=== PATIENT | female | born 1980 | race Caucasian/White ===

== ENCOUNTER 2024-02-23 03:45 | Emergency (ER) | payer OTHER, SELFPAY ==
--- NOTE | 2024-02-23 03:48 | DOWNTIME ---
There was a [employer] Downtime on 01/18/2024 from 0100 to 01/19/2024 at 0338. Downtime documentation of patient's care, including medication administrations, has been reconciled in the electronic record per guidelines. Refer to the
patient's paper chart under the miscellaneous tab to see printed paper medication records and downtime forms.
--- NOTE | 2024-02-23 03:49 | ED.GENMED ---
History of Present Illness
<THEO Johnson - Last Filed: 02/23/24 03:53>
General
Chief Complaint: Fever
Source: patient
Exam Limitations: none
Time Seen by Provider: 02/23/24 03:48
History of Present Illness
History of Present Illness:
44 Y/O F with PMH of HTN, ovarian cysts, diabetes on Mounjaro once QOW and Januvia, and hypothyroidism presents here tonight with complaints of LLQ abdominal pain x 3 days and fever x 1 day. Pt describes her LLQ pain as sharp and localized, without
radiation. She states the pain is worse with deep breathing and better when lying supine. She rates her abdominal pain is a 9/10. She states this has never happened before. She states she has low back pain, but nothing new. She also states she had a
bad headache today. She is nauseous.
She last took Advil at 11 p.m. without relief. Pt states she was having bad dreams and a fever which woke her up at 12:30 a.m. today.
Denies CP, SOB, V, constipation and diarrhea. Denies dysuria. Denies rectal bleeding.
Denies recent travel. Denies calf pain.
Denies nasal congestion, dysphagia, or otalgia.
Denies neck stiffness.
Past History
<THEO Johnson - Last Filed: 02/23/24 03:53>
Past History
ED Past Medical History: HTN and Psychiatric
ED Past Surgical History: Orthopedic and Tonsilectomy
Social History
Tobacco: Non-smoker
Alcohol: Occasional
Drug: None
Personal:
Living: with family
Employment: Employed
Family History
Family History: Hypertension
Review of Systems
<THEO Johnson - Last Filed: 02/23/24 03:53>
Review of Systems
Constitutional: Reports fever
EENT: Reports no symptoms
Respiratory: Reports no symptoms
Cardiac: Reports no symptoms
ABD/GI: Reports abdominal pain
: Reports no symptoms
Musculoskeletal: Reports no symptoms
Skin: Reports no symptoms
Neurological: Reports no symptoms
Endocrine: Reports no symptoms
Psychiatric: Reports no symptoms
Phy Exam
<[facility] - Last Filed: 02/23/24 03:53>
General Physical Exam
General Presentation: well appearing
General age: appears stated age
General Skin: warm
General Habitus: normal
General Mental: alert
General Hydration: appears well hydrated
Cardiovascular Exam
Cardiovascular Exam: regular rate/rhythm
Pulmonary Exam
Pulmonary Exam: lungs clear and no respiratory distress
Gastrointestinal Exam
Gastrointestinal Exam: normal bowel sounds, soft and non distended
Psychiatric Exam
Psychiatric Exam: normal mood/affect
Course
<Paloma Meyers [facility] - Last Filed: 02/23/24 03:53>
Orders/Labs/Results
Orders:
Orders
02/23/24 02:15
Complete Blood Count/With Diff Routine
Comprehensive Metabolic Panel Routine
HCG, Serum Qualitative Screen Routine
Lactic Acid Routine
Manual Differential Routine
Blood Culture Routine
TERESA Source: B
Specimen Description:
02/23/24 02:55
Blood Culture Routine
TERESA Source: B
Specimen Description:
02/23/24 03:49
CT Abd/Pel (IV only)-DH only Urgent
Comment:
Reason For Exam: LLQ abd pain
02/23/24 03:52
0.9% Sodium Chloride 1000 ml [Nss] 1,000 ml IV BOLUS
02/23/24 04:43
LevoFLOXacin [Levaquin] 750 mg PO NOW STA
MetroNIDAZOLE [Flagyl] 500 mg PO NOW STA
Abnormal Lab Results
02/23/24
02:15
RDW 15.1 H %
(11.5-14.5)
MPV 10.8 H fL
(7.4-10.4)
Segmented Neutrophils 31 L %
(42-75)
Band Neutrophils 15 H %
(0-3)
AST 43 H U/L
(14-36)
ALT 40 H U/L
(0-35)
02/23/24 02:15
02/23/24 02:15
Vital Signs
Initial and Last Documented VS:
Initial Vital Signs
Pulse Resp
82 20
02/23/24 04:00 02/23/24 04:00
Last Documented Vital Signs
Pulse Resp BP
84 23 124/68
02/23/24 04:01 02/23/24 04:01 02/23/24 04:01
<Dwain Piper, DO - Last Filed: 02/23/24 04:52>
Orders/Labs/Results
Orders:
Orders
02/23/24 02:15
Complete Blood Count/With Diff Routine
Comprehensive Metabolic Panel Routine
HCG, Serum Qualitative Screen Routine
Lactic Acid Routine
Manual Differential Routine
Blood Culture Routine
TERESA Source: B
Specimen Description:
02/23/24 02:55
Blood Culture Routine
TERESA Source: B
Specimen Description:
02/23/24 03:49
CT Abd/Pel (IV only)-DH only Urgent
Comment:
Reason For Exam: LLQ abd pain
02/23/24 03:52
0.9% Sodium Chloride 1000 ml [Nss] 1,000 ml IV BOLUS
02/23/24 04:43
LevoFLOXacin [Levaquin] 750 mg PO NOW STA
MetroNIDAZOLE [Flagyl] 500 mg PO NOW STA
Abnormal Lab Results
02/23/24
02:15
RDW 15.1 H %
(11.5-14.5)
MPV 10.8 H fL
(7.4-10.4)
Segmented Neutrophils 31 L %
(42-75)
Band Neutrophils 15 H %
(0-3)
AST 43 H U/L
(14-36)
ALT 40 H U/L
(0-35)
02/23/24 02:15
02/23/24 02:15
Vital Signs
Initial and Last Documented VS:
Initial Vital Signs
Pulse Resp
82 20
02/23/24 04:00 02/23/24 04:00
Last Documented Vital Signs
Pulse Resp BP
84 23 124/68
02/23/24 04:01 02/23/24 04:01 02/23/24 04:01
<THEO Johnson - Last Filed: 02/23/24 03:53>
MDM/Problems Addressed
Differential Diagnosis Includes:
Diverticulitis, Pancreatitis, Diverticulosis, Colitis, Ovarian cyst/torsion
MDM/Problems Addressed:
Fever, LLQ pain
Chronic conditions affecting care: DM and HTN
<THEO Johnson - Last Filed: 02/23/24 03:53>
*Critical Care Note
Total Time (30-74mins, 75-104mins- exclusive of procedures): Not Applicable
<Dwain Piper DO - Last Filed: 02/23/24 04:52>
Update Note
Update Note:
CT ABDOMEN/PELVIS WITH CONTRAST
IMPRESSION:
1. Uncomplicated sigmoid diverticulitis (series 202 image 34)
2. No bowel obstruction. Normal gallbladder and appendix
Incidentals:
�Periumbilical fat-containing hernia without suspicious features
- No obstructive uropathy.
- No hepatic or pancreatic mass.
- No abdominal aortic aneurysm.
- No acute osseous abnormality.
- No acute abnormality within the visualized lungs.
ED Attending Note
<THEO Johnson - Last Filed: 02/23/24 03:53>
-
Portions of this chart may have been created with voice recognition software.� Occasional wrong word or��sound alike� substitutions may have occurred due to the inherent limitations of voice recognition software.
<Dwain Piper DO - Last Filed: 02/23/24 04:52>
ED Attending Note
Patient seen and examined by attending physician: Yes
I performed the substantive portion of visit, reviewed & personally made and approve the management plan that is documented in note by myself or JEROD.: Yes
ED Attending Note:
This a pleasant 44-year-old female who presents with left lower quadrant abdominal pain that has been worsening for the last 3 days. She states that tonight, around 5 PM, she developed fever which caused her some concern. Patient states that her
left lower quadrant pain is sharp and nothing alleviates or exacerbates the pain. Patient reports a history of low back pain but states that this is distinctly different. She feels that she has also been dehydrated. Patient tried taking Advil but
did not have relief. Patient was seen in conjunction with the PA student. I have reviewed and agree with the history and treatment plan presented. On my independent physical exam, patient is awake, alert, and oriented x3. Abdomen is obese. Left
lower quadrant abdominal tenderness to palpation. No rigidity or guarding. Negative Verdugo sign, negative McBurney's point tenderness
Plan is Levaquin and Flagyl for uncomplicated sigmoid diverticulitis.
Discharge Plan
Departure
Patient Disposition: Home (Routine Discharge)
Date of Disposition: 02/23/24
Time of Disposition: 04:49
Patient with high blood pressure during this ER visit?: Yes
Discharge Problem:
Diverticulitis of sigmoid colon
Instructions: Diverticulitis (DC), Fever, Adult (DC), BLOOD PRESSURE
Prescriptions:
New
levofloxacin 750 mg tablet
750 mg PO DAILY 10 Days Qty: 10 0RF
metronidazole 500 mg tablet
500 mg PO TID Qty: 30 0RF
No Action
venlafaxine 75 MG capsule,extended release 24hr
75 mg PO DAILY
methylphenidate HCl 10 MG tablet
10 mg PO BID
lisinopril [Prinivil] 20 MG tablet
20 mg PO Daily
cetirizine 10 mg Tablet
10 mg PO DAILY
lisinopril 20 mg Tablet
20 mg PO DAILY
famotidine 40 mg Tablet
40 mg PO DAILY
levothyroxine [Synthroid] 150 mcg Tablet
150 mcg PO DAILY
Januvia 100 mg Tablet
100 mg PO DAILY
Gentle Iron (iron sulfate)
25 mg PO .2X/WEEK
Referrals:
Essie Rodriguez MD [Family Provider] -
Activity Restrictions/Additional Instructions:
It was a pleasure meeting you and taking part in your care. We hope for your continued healing and wellness.
Please read discharge instructions in their entirety. However, they are for general education and may not describe your exact diagnosis at discharge. Information on your ER visit and medical conditions were discussed with you along with appropriate
follow up information...
If indicated, please take your medications as instructed and indicated on discharge paperwork.
Please schedule a follow up appointment as directed. Call to schedule an appointment
Please return to the emergency department with ANY change in, persisting, or worsening of symptoms. If any of your symptoms do not improve, or persist, or become more severe within 6-12 hours, please return to the emergency department for further
care.
Please return to the emergency department if you develop a headache, neck pain/stiffness, fever greater than 100.4F, chest pain, shortness of breath, persistent nausea, vomiting, slurred speech, difficulty walking, numbness/tingling, weakness, signs
of infection or any other symptoms that are worrisome to you.
If you have any questions or concerns please do not hesitate to call the Hospital at or E-mail me directly at [email or web address]
Discharge Date and Time
Print Language: TAIWANESE
[2024-02-23] MEDS: NSS 1000 IV (03:52)
[2024-02-23 03:54] LABS: HCG, Serum Qualitative Screen Negative
[2024-02-23 03:56] LABS: ALT (SGPT) 40 U/L (0-35); AST (SGOT) 43 U/L (14-36); Albumin 3.9 g/dl (3.5-5.0); Alkaline Phosphatase 95 U/L (38-126); Blood Urea Nitrogen 10 mg/dl (7-17); Calcium 8.6 mg/dl (8.4-10.2); Carbon Dioxide 23 mmol/L (22-30); Chloride 105 mmol/L (98-107); Glucose 94 mg/dl (70-99); Lactic Acid 1.8 mmol/L (0.7-2.0); Potassium 3.7 mmol/L (3.5-5.1); Sodium 139 mmol/L (135-145); Total Bilirubin 0.5 mg/dl (0.2-1.3); Total Protein 7.2 g/dl (6.3-8.2); eGFR > 60.00
[2024-02-23 04:01] VITALS: BP 124/68
[2024-02-23 04:01] LABS: Hematocrit 39.3 % (37.0-47.0); Mean Corp Hgb Conc. 33.1 g/dL (33.0-37.0); Mean Corpuscular Hgb 28.1 pg (27.0-31.0); Mean Corpuscular Volume 85.1 fL (81.0-99.0); Mean Platelet Volume 10.8 fL (7.4-10.4); Platelet Count 149 10^3/uL (130-400); Red Blood Cell Count 4.62 10^6/uL (4.20-5.40); Red Cell Dist. Width 15.1 % (11.5-14.5); White Blood Cell Count 5.3 10^3/uL (4.8-10.8)
[2024-02-23 04:03] LABS: Absolute Neutrophils -Man Diff 2.4 10^3/uL (1.4-6.5); Atypical Lymphocytes 10 %; Band Neutrophils 15 % (0-3); Eosinophils 1 % (0-6); Lymphocytes 40 % (20-51); Monocytes 3 % (2-9); Normal RBC Morphology Yes; Platelets Checked Yes; Segmented Neutrophils 31 % (42-75); Total Cells Counted 100
[2024-02-23] MEDS: LEVAQUIN 750 MG PO (04:51)
[2024-02-23] MEDS: FLAGYL 500 MG PO (04:51)
[2024-02-23 04:55] VITALS: BP 114/55
== END 2024-02-23 05:00 | disposition home or self-care (01) ==
LOC: EMR 03:45
PROVIDERS: EMERGENCY PHYSICIAN Student in an Organized Health Care Education/Training Program; FAMILY PHYSICIAN Internal Medicine
DX: K57.32 Diverticulitis of large intestine without perforation or abscess without bleeding (principal); R11.0 Nausea; R51.9 Headache, unspecified; M54.50 Low back pain, unspecified; I10 Essential (primary) hypertension; N83.209 Unspecified ovarian cyst, unspecified side; E11.9 Type 2 diabetes mellitus without complications; E03.9 Hypothyroidism, unspecified; E66.9 Obesity, unspecified
CPT/HCPCS: 99285; 74177; 80053; 83605; 84703; 85025; 87040; Q9967

== ENCOUNTER 2024-02-25 15:43 | Inpatient (IN) | payer OTHER, SELFPAY ==
[2024-02-25 12:24] VITALS: BP 142/81
--- NOTE | 2024-02-25 13:29 | ED.GENMED ---
History of Present Illness
General
Chief Complaint: Abdominal Pain
Time Seen by Provider: 02/25/24 12:32
History of Present Illness
History of Present Illness:
43-year-old female presents the emergency department for evaluation of abnormal blood culture results. Patient was seen here 2 days ago for acute diverticulitis and discharged on ciprofloxacin and metronidazole, was called today by the ER due to 1
out of 2 positive blood cultures for gram-negative bacilli. Denies fevers, chills, or sweats. Does have continued left lower quadrant pain.
Past History
Past History
ED Past Medical History: HTN and Psychiatric
ED Past Surgical History: Orthopedic and Tonsilectomy
Social History
Tobacco: Non-smoker
Alcohol: Occasional
Drug: None
Personal:
Living: with family
Employment: Employed
Family History
Family History: Hypertension
Review of Systems
Review of Systems
Allergies reviewed?: Yes
All Other Systems: ROS reviewed and negative except as documented in HPI and ROS
Phy Exam
Physical Exam
Physical Exam:
GEN: Well appearing, NAD, WDWN
HEENT: Oral mucosa moist, no scleral icterus
Cardiac: Regular rate
Lung: No respiratory distress, no tachypnea
MSK: No gross deformity or injuries
Skin: Good color, no pallor or jaundice, no rashes
Neuro: AO x3, moves all extremities freely
Psych: Calm, cooperative
Course
Orders/Labs/Results
Orders:
Orders
02/25/24 13:13
MetroNIDAZOLE 500 MG/100 ML [Flagyl 500 mg] 100 ml IV NOW
02/25/24 13:58
Complete Blood Count/With Diff Urgent
Comprehensive Metabolic Panel Urgent
Blood Culture Q30M
TERESA Source: Blood/Venous
Specimen Description:
Blood Culture Q30M
TERESA Source: Blood/Venous
Specimen Description:
02/25/24 14:11
Ciprofloxacin 400 mg/[id number] [Cipro 400 mg] 200 ml IV NOW
02/25/24 15:27
Admit/Transfer Patient As Directed
Co-Sign Provider:
Level of Care: Inpatient admission
Assign to:: Medical/Surgical
Physician / Group: margo ramirez
Diagnosis: gram neg bacilli blood culture, Sigmoid diverticulitis
Reason for Hospitalization: gram neg bacilli blood culture, Sigmoid diverticulitis
Expected length of stay greater than two midnights?: Yes
ELOS- Estimated Length of Stay in days: 3
I certify the patient meets the requirements for IP care: Yes
Code Status As Directed
Resuscitation Status: Full Code
Abnormal Lab Results
02/25/24
13:58
RDW 15.8 H %
(11.5-14.5)
MPV 11.1 H fL
(7.4-10.4)
Immature Gran % 0.8 H %
(0-0.5)
Neutrophils % 40.0 L %
(42.2-75.2)
AST 67 H U/L
(14-36)
ALT 52 H U/L
(0-35)
02/25/24 13:58
02/25/24 13:58
Vital Signs
Initial and Last Documented VS:
Initial Vital Signs
Temp Pulse Resp BP Pulse Ox
98.3 F 70 20 142/81 96
02/25/24 12:24 02/25/24 12:24 02/25/24 12:24 02/25/24 12:24 02/25/24 12:24
Last Documented Vital Signs
Temp Pulse Resp BP Pulse Ox
98.3 F 70 20 142/81 96
02/25/24 12:24 02/25/24 12:24 02/25/24 12:24 02/25/24 12:24 02/25/24 12:24
MDM/Problems Addressed
MDM/Problems Addressed:
Patient does not clinically well however given the gram-negative bacteremia will admit for IV antibiotics, no indication for reimaging of the abdomen
*Critical Care Note
Total Time (30-74mins, 75-104mins- exclusive of procedures): Not Applicable
ED Attending Note
-
Portions of this chart may have been created with voice recognition software.� Occasional wrong word or��sound alike� substitutions may have occurred due to the inherent limitations of voice recognition software.
Discharge Plan
Departure
Patient Disposition: Admit
Date of Disposition: 02/25/24
Time of Disposition: 14:33
Presentation/result/management discussed w/ accepting MD/DO: Hospitalist
Discharge Problem:
Diverticulitis, Blood bacterial culture positive
Interventions
Interventions:
*Risk Screen - Suicide Last Done: 02/25/24 12:24
*General Assessment Last Done: 02/25/24 12:24
*Neglect/Abuse Screening Last Done: 02/25/24 12:24
[2024-02-25] MEDS: FLAGYL 500 MG 100 IV ×2 (14:01→21:25)
[2024-02-25 14:15] LABS: % Basophils 0.9 % (0-2); % Eosinophils 2.1 % (0-6); % Immature Granulocytes 0.8 % (0-0.5); % Lymphocytes 50.5 % (20.5-51.1); % Monocytes 5.7 % (1.7-9.3); Absolute Basophils 0.1 10^3/uL (0-0.2); Absolute Eosinophils 0.1 10^3/uL (0-0.7); Absolute Lymphocytes 2.7 10^3/uL (1.2-3.4); Absolute Monocytes 0.3 10^3/uL (0.1-0.6); Absolute Neutrophils 2.1 10^3/uL (1.4-6.5); Hematocrit 39.8 % (37.0-47.0); Hemoglobin 13.5 g/dL (12.0-16.0); Mean Corp Hgb Conc. 33.9 g/dL (33.0-37.0); Mean Corpuscular Hgb 28.3 pg (27.0-31.0); Mean Corpuscular Volume 83.4 fL (81.0-99.0); Mean Platelet Volume 11.1 fL (7.4-10.4); Nucleated Red Blood Cells % 0 %; Platelet Count 151 10^3/uL (130-400); Red Blood Cell Count 4.77 10^6/uL (4.20-5.40); Red Cell Dist. Width 15.8 % (11.5-14.5); White Blood Cell Count 5.3 10^3/uL (4.8-10.8)
[2024-02-25 14:24] LABS: ALT (SGPT) 52 U/L (0-35); AST (SGOT) 67 U/L (14-36); Albumin 3.7 g/dl (3.5-5.0); Alkaline Phosphatase 87 U/L (38-126); Blood Urea Nitrogen 8 mg/dl (7-17); Calcium 8.5 mg/dl (8.4-10.2); Carbon Dioxide 27 mmol/L (22-30); Chloride 107 mmol/L (98-107); Glucose 84 mg/dl (70-99); Potassium 3.8 mmol/L (3.5-5.1); Sodium 139 mmol/L (135-145); Total Bilirubin 0.6 mg/dl (0.2-1.3); Total Protein 6.8 g/dl (6.3-8.2); eGFR > 60.00
[2024-02-25] MEDS: CIPRO 400 MG 200 IV (15:07)
--- NOTE | 2024-02-25 15:10 | HPS.HSE ---
Addendum entered and electronically signed by Ronnie Greene MD 02/25/24 15:49:
I saw and examined the patient.
The PRESSRO[employer] FOREMAN's note was reviewed and I agree with the note.
Comment:
43-year-old female who was recently seen in the ER for presented to the ER with abdominal pain and was found to have sigmoid diverticulitis and discharged on oral antibiotics. At home patient states of abdominal soreness. No nausea or vomiting.
States she been eating toast and drinking liquids. No fevers or chills. No chest pain or shortness of breath.
General: Comfortable and Conversant; Morbidly obese
HEENT: NormoCephalic, Anicteric, Moist mucous membranes, [place] Conjunctivae and No Ptosis
Respiratory: Clear; No Wheezes, Rales or Rhonchi
Cardiac: S1/S2 and Regular Rhythm; No Murmur, Rub, Gallop or Peripheral Edema
GI: Soft, Non Distended, Normal Bowel Sounds, Tender (Mild left lower quadrant) and No Hepatosplenomegaly
Musculoskeletal: No Clubbing, No Cyanosis and No Edema
Skin: Warm and Dry; No Rash
Neuro: AO x 3, No Motor Deficits, Nonfocal/grossly intact, Cranial Nerves Intact and No Sensory Deficits; No Slurred Speech, Facial Droop or Tremors
Psych: Calm
Impression
Gram-negative bacteremia likely secondary to sigmoid diverticulitis
Acute uncomplicated sigmoid diverticulitis first episode
Morbid obesity
Hypothyroidism s/p thyroidectomy due to benign thyroid goiter
Primary hypertension
ADD
Depression
Plan for liquid diet
Continue patient on Levaquin and Flagyl
Follow-up on the culture data
Repeat blood cultures x 2
Advanced diet as tolerated
WBC normal vitals stable otherwise
Hold p.o. diabetic meds
Accu-Cheks
DVT prophylaxis-lovenox
Original Note:
Family Physician
-
Family Physician: Essie Rodriguez
Chief Complaint
-
Gram-negative bacilli 1 out of 2 blood cultures
History of Present Illness
43-year-old female who was seen here 2 days ago for acute sigmoid diverticulitis discharged on Levaquin and Flagyl. She was called today by the ER due to gram-negative bacilli in 1 out of 2 blood cultures. She still reports mild left lower
quadrant abdominal pain but denies fever, chills, diaphoresis, chest pain, palpitations, shortness breath, cough, urinary symptoms. She has past medical history of sigmoid diverticulitis, HTN, DM2, hypothyroidism secondary to benign thyroid
goiter,, ADD, depression, GERD, seasonal allergies, obesity
Medical History
Past Medical History
Past Medical History: Reports Other
Additional Past Medical History:
sigmoid diverticulitis
HTN
DM2
hypothyroidism s/p thyroidectomy due to benign thyroid goiter
ADD
depression
GERD
seasonal allergies
Obesity
Past Surgical History: Reports Other
Additional Past Surgical History:
s/p thyroidectomy due to benign thyroid goiter
Uvulectomy
Sinus surgery
Tonsillectomy adenoidectomy
Bilateral CTR
Social History
Tobacco: Non-smoker
Alcohol: Occasional (Drinks 1 drink every 3 days)
Drug: None
Employment: Employed
Family History
Family History: Other (Mother history diverticulitis, HTN, father history CVA age 72 still living, sister history of diverticulitis with colon resection)
Allergies / Home Medications
Allergies reflects when Allergies were last updated in [facility].
Home Medications with original date entered in [facility]
Allergy/Medication List:
Allergies
Allergy/AdvReac Type Severity Reaction Status Date / Time
acetaminophen [From Percocet] Allergy Pharmacy Verified 02/25/24 12:24
to Review
codeine [Codeine] Allergy vomits Verified 02/25/24 12:24
oxycodone HCl [From Percocet] Allergy vomits Verified 02/25/24 12:24
Home Medications
methylphenidate HCl 10 mg tablet 20 mg PO DAILYPRN PRN for work 04/08/16
cetirizine 10 mg tablet 10 mg PO HS 11/17/22
famotidine 40 mg tablet 40 mg PO NOON 11/17/22
levothyroxine 150 mcg tablet (Synthroid) 150 mcg PO DAILY 11/17/22
lisinopril 20 mg tablet 20 mg PO DAILY 11/17/22
sitagliptin phosphate 100 mg tablet (Januvia) 100 mg PO NOON 11/17/22
levofloxacin 750 mg tablet 750 mg PO DAILY 10 days #10 tabs 02/23/24
metronidazole 500 mg tablet 500 mg PO TID #30 tabs 02/23/24
Neuriva 1 tab PO DAILY 02/25/24
cyclobenzaprine 5 mg tablet 5 mg PO HSPRN PRN muscle spasms 02/25/24
ibuprofen 200 mg capsule (Advil Liqui-Gel) 600 mg PO BID 02/25/24
inositol 1 tab PO .2/WEEK 02/25/24
tirzepatide 5 mg/0.5 mL subcutaneous pen injector (Mounjaro) 5 mg SC MO 02/25/24
venlafaxine 75 mg tablet 75 mg PO HS 02/25/24
Review of Systems
-
History Source: Patient
A 12 point ROS was completed and negative except as noted: Yes
Constitutional: Denies Fever, Fatigue or Chills
EENT: Denies Sore Throat or Runny Nose
Respiratory: Denies Cough or Trouble Breathing
Cardiac: Denies Chest Pain, Diaphoresis, Palpitations or Syncope
Abdomen/GI: Reports Abdominal Pain (Left lower quadrant); Denies Nausea, Vomiting, Diarrhea, Constipated or Black Stools
: Denies Dysuria, Frequency, Flank Pain, Incontinence, Difficulty Voiding or Urgency
Musculoskeletal: Denies Joint Pain or Edema
Skin: Denies Itching or Rash
Neurological: Denies Dizzy, Headache or Weakness
Endocrine: Reports No Symptoms
Hematologic/Lymphatic: Reports No Symptoms
Psych: Reports Calm
Physical Exam
Vital Signs
Vital Signs
Temp Pulse Resp BP Pulse Ox
98.3 F 70 20 142/81 96
02/25/24 12:24 02/25/24 12:24 02/25/24 12:24 02/25/24 12:24 02/25/24 12:24
Physical Exam
General: Comfortable and Conversant; No Pain, Fever or Chills
HEENT: NormoCephalic, Anicteric, Moist mucous membranes, PERRLA, [place] Conjunctivae and No Ptosis
Respiratory: Clear; No Wheezes, Rales or Rhonchi
Cardiac: S1/S2 and Regular Rhythm; No Murmur, Rub, Gallop or Peripheral Edema
GI: Soft, Non Distended, Normal Bowel Sounds, Tender (Mild left lower quadrant) and No Hepatosplenomegaly
Rectal: Deferred by Provider
Genito-urinary: Deferred by me
Musculoskeletal: No Clubbing, No Cyanosis and No Edema
Skin: Warm and Dry; No Rash
Neuro: AO x 3, No Motor Deficits, Nonfocal/grossly intact, Cranial Nerves Intact and No Sensory Deficits; No Slurred Speech, Facial Droop or Tremors
Psych: Calm
Laboratory Results
-
02/25/24 13:58
02/25/24 13:58
Laboratory Results
Total Bilirubin 0.6 mg/dl (0.2-1.3) 02/25/24 13:58
AST 67 U/L (14-36) H 02/25/24 13:58
ALT 52 U/L (0-35) H 02/25/24 13:58
Alkaline Phosphatase 87 U/L (38-126) 02/25/24 13:58
Impression/Plan
-
Impression/plan:
Inpatient MedSurg
#Gram-negative bacilli on blood culture x 1
Afebrile, normotensive
-Repeat blood cultures x 2
-Follow CBC
-Full liquid diet
-Tylenol Motrin, as needed
#Recent sigmoid diverticulitis
-Continue IV Levaquin/Flagyl
#HTN-benign
BP 142/81
Continue lisinopril 20 mg daily
#Hypothyroidism
Continue Synthroid 150 mcg daily
#DM2
Continue Januvia 100 mg daily
Takes Mounjaro once a week
#ADD
Takes methylphenidate 20 mg daily as needed for work
#GERD
Continue Pepcid 40 mg at noon
#Depression
Continue Effexor 75 mg p.o. at bedtime
#Seasonal allergies
Continue cetirizine
#Obesity due to excess calorie consumption
-Weight loss recommended diabetic diet
DVT prophylaxis
Subcu Lovenox
Full code
[2024-02-25 16:31] VITALS: BP 137/79; BMI 43.8
[2024-02-25 16:38] LABS: Glucose - Point of Care 86 mg/dl (70-99)
[2024-02-25] MEDS: LR 1000 IV (16:48)
--- NOTE | 2024-02-25 17:52 | PTCARENOTE ---
Patient admitted into room 407-02 from the ER. Vital signs stable. Reviewed plan of care with patient. Oriented patient to room, use of call martinez, and television and bed controls. Patient verbalizes understanding and denies questions at this time.
Patient on clear liquids and patient aware and understands. Denies pain at this time. Resting comfortably in bed.
[2024-02-25] MEDS: MOTRIN 600 MG PO (20:44)
[2024-02-25] MEDS: EFFEXOR 75 MG PO (20:44)
[2024-02-25] MEDS: ZYRTEC 10 MG PO (20:44)
[2024-02-25 21:33] LABS: Glucose - Point of Care 86 mg/dl (70-99)
[2024-02-25] MEDS: LEVAQUIN 150 IV (22:30)
[2024-02-25 23:26] VITALS: BP 115/69
[2024-02-26] MEDS: SYNTHROID 150 MCG PO (05:32)
[2024-02-26] MEDS: FLAGYL 500 MG 100 IV ×2 (05:32→14:42)
[2024-02-26] MEDS: LR 1000 IV (06:23)
[2024-02-26 07:08] LABS: Glucose - Point of Care 95 mg/dl (70-99)
[2024-02-26 07:24] LABS: % Basophils 1.1 % (0-2); % Eosinophils 1.9 % (0-6); % Immature Granulocytes 0.9 % (0-0.5); % Lymphocytes 53.6 % (20.5-51.1); % Monocytes 6.7 % (1.7-9.3); % Neutrophils 35.8 % (42.2-75.2); Absolute Basophils 0.1 10^3/uL (0-0.2); Absolute Eosinophils 0.1 10^3/uL (0-0.7); Absolute Lymphocytes 2.5 10^3/uL (1.2-3.4); Absolute Monocytes 0.3 10^3/uL (0.1-0.6); Absolute Neutrophils 1.7 10^3/uL (1.4-6.5); Hematocrit 37.4 % (37.0-47.0); Mean Corp Hgb Conc. 32.1 g/dL (33.0-37.0); Mean Corpuscular Hgb 27.5 pg (27.0-31.0); Mean Corpuscular Volume 85.8 fL (81.0-99.0); Nucleated Red Blood Cells % 0 %; Platelet Count 127 10^3/uL (130-400); Red Blood Cell Count 4.36 10^6/uL (4.20-5.40); Red Cell Dist. Width 15.7 % (11.5-14.5); White Blood Cell Count 4.7 10^3/uL (4.8-10.8)
[2024-02-26 07:36] LABS: ALT (SGPT) 60 U/L (0-35); AST (SGOT) 81 U/L (14-36); Albumin 3.3 g/dl (3.5-5.0); Alkaline Phosphatase 87 U/L (38-126); Blood Urea Nitrogen 7 mg/dl (7-17); Calcium 8.1 mg/dl (8.4-10.2); Carbon Dioxide 24 mmol/L (22-30); Chloride 107 mmol/L (98-107); Estimated Creatinine Clearance > 125 ml/min; Glucose 84 mg/dl (70-99); Potassium 3.6 mmol/L (3.5-5.1); Sodium 138 mmol/L (135-145); Total Bilirubin 0.5 mg/dl (0.2-1.3); Total Protein 6.5 g/dl (6.3-8.2); eGFR > 60.00
[2024-02-26 07:55] VITALS: BP 119/71
[2024-02-26] MEDS: ZESTRIL 20 MG PO (08:30)
[2024-02-26] MEDS: MOTRIN 600 MG PO (08:31)
[2024-02-26 11:05] LABS: Glycohemoglobin (HgbA1c) 5.4 % (4.0-5.6)
--- NOTE | 2024-02-26 11:38 | W.PN.HOSP.TC ---
Addendum entered and electronically signed by Ronnie Greene MD 02/26/24 17:50:
Discussed with infectious disease. Okay for discharge on p.o. Levaquin and Flagyl which patient was prescribed from the ER and patient was compliant with it. Patient remains afebrile. Tolerating low residue diet. Will DC with outpatient
follow-ups.
More than 30 minutes spent in discharge including
Final examination of the patient
Summarizing hospital stay
Instructions for continuing care to all relevant caregivers
Preparation of discharge records, prescriptions, and referral forms
Total time spent (in minutes): 45
Original Note:
Today's Communication/Plan
-
Await culture data
IV antibiotic
advanced to fulls
Assessment / Plan
Assessment / Plan
General: Comfortable and Conversant; Morbidly obese
HEENT: NormoCephalic, Anicteric, Moist mucous membranes, [place] Conjunctivae and No Ptosis
Respiratory: Clear; No Wheezes, Rales or Rhonchi
Cardiac: S1/S2 and Regular Rhythm; No Murmur, Rub, Gallop or Peripheral Edema
GI: Soft, Non Distended, Normal Bowel Sounds, Tender (Mild left lower quadrant) and No Hepatosplenomegaly
Musculoskeletal: No Clubbing, No Cyanosis and No Edema
Skin: Warm and Dry; No Rash
Neuro: AO x 3, No Motor Deficits, Nonfocal/grossly intact, Cranial Nerves Intact and No Sensory Deficits; No Slurred Speech, Facial Droop or Tremors
Psych: Calm
#Gram-negative bacteremia likely secondary to sigmoid diverticulitis
#Acute uncomplicated sigmoid diverticulitis first episode
Afebrile, normotensive
-Repeat blood cultures x 2 in labs
-Follow-up on the initial blood culture identification and susceptibility results
-Follow CBC
-Tolerated clears will advance to full's
-Tylenol Motrin, as needed
-ID eval
#HTN-benign
Continue lisinopril 20 mg daily
# Mild transaminitis
CT scan with hepatomegaly
Will need outpatient evaluation and follow-up as patient with multiple risk factors hypertension, diabetes and morbid obesity
#Hypothyroidism
Continue Synthroid 150 mcg daily
#DM2
Continue Januvia 100 mg daily
Takes Mounjaro once a week
#ADD
Takes methylphenidate 20 mg daily as needed for work
#GERD
Continue Pepcid 40 mg at noon
#Depression
Continue Effexor 75 mg p.o. at bedtime
#Seasonal allergies
Continue cetirizine
# Morbid obesity due to excess calorie consumption
-Weight loss recommended diabetic diet
DVT prophylaxis
Subcu Lovenox
Full code
Anticipated Discharge: 24 - 48 hours
Subjective/Interval History
-
Date of Service: February 26, 2024
Denies abd pain this morning
no nausea or vomiting
tolerated clears
Objective Data
-
Labs:
Laboratory Results
02/26/24
06:42
WBC 4.7 L
Hgb 12.0
Hct 37.4
Plt Count 127 L
Sodium 138
Potassium 3.6
Chloride 107
Carbon Dioxide 24
BUN 7
Creatinine 0.6
Glucose 84
Calcium 8.1 L
Total Bilirubin 0.5
AST 81 H
ALT 60 H
Alkaline Phosphatase 87
Vital Signs:
Vital Signs
Temp Pulse Resp BP Pulse Ox
97.7 F 74 16 115/69 97
02/26/24 07:55 02/26/24 08:30 02/26/24 07:55 02/26/24 08:30 02/26/24 07:55
I&O
02/25/24 02/26/24 02/27/24
06:59 06:59 06:59
Intake Total 2229
Output Total 450 / 450
Balance 1779
--- NOTE | 2024-02-26 11:44 | W.PN.UPDATE ---
Update Note
Progress Note Update
for billing purpose H&P
[2024-02-26 12:16] LABS: Glucose - Point of Care 104 mg/dl (70-99)
[2024-02-26] MEDS: PEPCID 40 MG PO (12:30)
--- NOTE | 2024-02-26 13:23 | CON.ID ---
Consultation
-
Date/Time Consultation Requested: 02/25/24 16:17
Date/Time Consultation Performed: 02/26/24 14:03
Requesting Provider: Dr Greene
Performing Provider: Dr Peterson
Reason for Consultation: diverticulitis, GNR bacteremia
Chief Complaint / Past History
Chief Complaint
Gram-negative bacilli 1 out of 2 blood cultures
History of Present Illness
Ms Hernandez is a 43 year old female with recent diagnosis of sigmoid diverticulitis on 02/22 with GNR bacteremia. She was called back in for the bacteremia. She was taking levaquin and flagyl as prescribed and had a 10 day course prescribed. On
admission reported mild left lower quadrant abdominal pain. Denied: fever, chills, diaphoresis, chest pain, palpitations, shortness breath, cough, urinary symptoms
Since arrival here this visit she has been afebrile, bp stable, wbc 5.3 today 4.7, hgb 12.0, plt 127, no L shift, cr 0.6, a1c 5.4, t bili 0.5, ast 81, alkt 60, 02/22 CT: Mild proximal sigmoid colon acute diverticulitis. No evidence of perforation or
abscess formation, fatty liver. 1 of two blood cultures with GNR in the anaerobic bottle.
Past History
Additional Past Medical History:
sigmoid diverticulitis
HTN
DM2
hypothyroidism s/p thyroidectomy due to benign thyroid goiter
ADD
depression
GERD
seasonal allergies
Obesity
Additional Past Surgical History:
s/p thyroidectomy due to benign thyroid goiter
Uvulectomy
Sinus surgery
Tonsillectomy adenoidectomy
Bilateral CTR
Allergy History:
acetaminophen [From Percocet] Allergy (Verified 02/25/24 12:24)
Pharmacy to Review
codeine [Codeine] Allergy (Verified 02/25/24 12:24)
vomits
oxycodone HCl [From Percocet] Allergy (Verified 02/25/24 12:24)
vomits
Medications Reviewed: Yes
Social History
Tobacco: Non-Smoker
Alcohol: Occasional
Drug: None
Family History
Family History: Not Pertinent
Review of Systems
Review of Systems
General: Negative Fever or Chills
All systems: All other systems were reviewed and were negative
Vital Signs
Temp Pulse Resp BP Pulse Ox
97.7 F 74 16 115/69 97
02/26/24 07:55 02/26/24 08:30 02/26/24 07:55 02/26/24 08:30 02/26/24 07:55
Physical Exam
Physical Exam
Constitutional: No Acute Distress
Cardiovascular: Regular Rate and S1/S2; Negative Murmur or Rub
Pulmonary: Clear and Symmetric; Negative Wheezes, Rales or Rhonchi
Gastrointestinal: Soft, Non Tender, Non Distended and Normal Bowel Sounds
Skin: Warm and Dry; Negative Rash or Jaundice
Lab / Diagnostic Study Results
02/26/24 06:42
02/26/24 06:42
Abs Immat Gran (auto) 0.0 10^3/uL (0-0.05) 02/26/24 06:42
Absolute Neuts (auto) 1.7 10^3/uL (1.4-6.5) 02/26/24 06:42
Absolute Lymphs (auto) 2.5 10^3/uL (1.2-3.4) 02/26/24 06:42
Absolute Monos (auto) 0.3 10^3/uL (0.1-0.6) 02/26/24 06:42
Absolute Basos (auto) 0.1 10^3/uL (0-0.2) 02/26/24 06:42
Immature Gran % 0.9 % (0-0.5) H 02/26/24 06:42
Neutrophils % 35.8 % (42.2-75.2) L 02/26/24 06:42
Lymphocytes % 53.6 % (20.5-51.1) H 02/26/24 06:42
Monocytes % 6.7 % (1.7-9.3) 02/26/24 06:42
Eosinophils % 1.9 % (0-6) 02/26/24 06:42
Basophils % 1.1 % (0-2) 02/26/24 06:42
Microbiology Results
Micro:
02/25/24 13:58 Blood Culture - Pending
Blood/Venous
02/25/24 13:58 Blood Culture - Pending
Blood/Venous
Assessment / Plan
Diverticulitis
GNR Bacteremia - likely anaerobe
Class III obesity
- clinically improved on outpatient levofloxacin/metronidazole
- isolate likely an anaerobe - ID may take some time and sensitivities typically not done
- stable for dc to complete planned 10 day course of levofloxacin/metronidazole from ID perspective
[2024-02-26 15:30] VITALS: BP 119/73
[2024-02-26 17:17] LABS: Glucose - Point of Care 84 mg/dl (70-99)
--- NOTE | 2024-02-26 17:48 | W.DCSUMMARY ---
Discharge Summary
Discharge Data
Date of Admission: 02/25/24
Date of Discharge: 02/26/24
-
Pending Results: Yes
Additional Pending Results:
Blood culture results with primary doctor
Hospital Course
43 female past medical history of morbid obesity, hypertension who was told to return to ER as her blood cultures was positive. Of note patient was seen in the ER couple days ago prior to admission when she was found to acute sigmoid diverticulitis
and blood cultures were obtained. Patient was discharged on p.o. Levaquin and Flagyl. Patient 1 out of 4 blood cultures came back positive likely anaerobe. Gram-negative. Patient was called to return to ER. Patient was admitted to the hospital.
Patient was eval by infectious disease. Patient was started on clear liquid diet which she tolerated thus it was advanced to full liquids. Patient was tolerating liquid diet and IV fluid was discontinued. Patient diet was advanced to low residue
which she was tolerating it. Patient was eval by infectious disease who recommended patient can be discharged home to complete plan 10-day course of Levaquin and Flagyl. Patient was afebrile. White count within normal limits. Patient be
discharged home with outpatient follow-up primary doctor and recommended follow-up with hospice team lead.
Discharge Plan
-
Patient Disposition: Home (Routine Discharge)
Discharge Diagnosis/Procedures: Gram-negative bacteremia likely secondary to sigmoid diverticulitis
Acute uncomplicated sigmoid diverticulitis first episode
Condition: Fair
Diet: Low Residue
Activity: With assistance and As tolerated
Driving Restrictions: As prior to admission
Activity Restrictions/Additional Instructions:
Recommend to follow up with hospice team lead in 6-8 weeks.
Complete planned 10 day course of levofloxacin/metronidazole
Referrals:
Essie Rodriguez MD [Family Provider] - in less than 1 week
Rosangela Valero MD [Active] - None
Prescriptions:
Continued
methylphenidate HCl 10 MG tablet
20 mg PO DAILYPRN PRN (Reason: for work)
cetirizine 10 mg Tablet
10 mg PO HS
lisinopril 20 mg Tablet
20 mg PO DAILY
famotidine 40 mg Tablet
40 mg PO NOON
levothyroxine [Synthroid] 150 mcg Tablet
150 mcg PO DAILY
Januvia 100 mg Tablet
100 mg PO NOON
Patient Comments:
02/25/24: patient states she has not taken recently because she has not been eating
levofloxacin 750 mg tablet
750 mg PO DAILY 10 Days Qty: 10 0RF
Patient Comments:
02/25/24: started on 02/23/24, take once a day for 10 days
metronidazole 500 mg tablet
500 mg PO TID Qty: 30 0RF
Patient Comments:
02/25/24: started 02/23/24, take 1 tab 3 times a day for 10 days
venlafaxine 75 mg Tablet
75 mg PO HS
ibuprofen [Advil Liqui-Gel] 200 mg Capsule
600 mg PO BID
cyclobenzaprine 5 mg Tablet
5 mg PO HSPRN PRN (Reason: muscle spasms)
Mounjaro 5 mg/0.5 mL Pen Injector
5 mg SC MO
Neuriva tablet
1 tab PO DAILY
inositol tablet
1 tab PO .2/WEEK
Discharge Orders:
Discharge Patient (As Directed); Ordered 02/26/24
Ordered By: Ronnie Greene
Discharge Date and Time
Print Language: CHILEAN
--- NOTE | 2024-02-26 19:58 | PTCARENOTE ---
Patient verbalizes understanding of all discharge instructions. Denies questions at this time. Left ambulatory with daughter.
== END 2024-02-26 18:38 | disposition home or self-care (01) | DRG 392 ==
LOC: 4 EAST ACU 15:43
PROVIDERS: Clinical Nurse Specialist Family Health; Physician Assistant; ADMITTING PHYSICIAN Hospitalist; CONSULT PHYSICIAN Student in an Organized Health Care Education/Training Program; EMERGENCY PHYSICIAN Emergency Medicine; FAMILY PHYSICIAN Internal Medicine
DX: K57.32 Diverticulitis of large intestine without perforation or abscess without bleeding (principal); R78.81 Bacteremia; E66.01 Morbid (severe) obesity due to excess calories; E89.0 Postprocedural hypothyroidism; I10 Essential (primary) hypertension; F32.9 Major depressive disorder, single episode, unspecified; R16.0 Hepatomegaly, not elsewhere classified; F98.8 Other specified behavioral and emotional disorders with onset usually occurring in childhood and adolescence; B96.89 Other specified bacterial agents as the cause of diseases classified elsewhere; J30.2 Other seasonal allergic rhinitis; K21.9 Gastro-esophageal reflux disease without esophagitis; R74.01 Elevation of levels of liver transaminase levels; Z79.84 Long term (current) use of oral hypoglycemic drugs; Z79.890 Hormone replacement therapy; Z79.899 Other long term (current) drug therapy; Z88.5 Allergy status to narcotic agent; Z88.6 Allergy status to analgesic agent
CPT/HCPCS: 80053; 82962; 83036; 85025; 87040; 96365; 96375; 99284

== ENCOUNTER 2025-01-17 06:15 | Day surgery (SDC) | payer OTHER, SELFPAY ==
[2025-01-17 07:40] VITALS: BMI 44.6
[2025-01-17 07:42] VITALS: BP 129/73; BMI 44.6
[2025-01-17 07:47] LABS: Glucose - Point of Care 97 mg/dl (70-99)
[2025-01-17 08:30] VITALS: BP 131/80
[2025-01-17 08:45] VITALS: BP 126/83
[2025-01-17 09:00] VITALS: BP 124/81
== END 2025-01-17 09:00 | disposition home or self-care (01) ==
LOC: GI 06:15
PROVIDERS: ATTENDING PHYSICIAN Internal Medicine
DX: Z12.11 Encounter for screening for malignant neoplasm of colon (principal); K64.8 Other hemorrhoids; K57.30 Diverticulosis of large intestine without perforation or abscess without bleeding; K63.5 Polyp of colon; K62.1 Rectal polyp
CPT/HCPCS: 45380; 88305; 82962